=== PATIENT | female | born 1970 | race Caucasian/White ===

== ENCOUNTER 2017-02-25 05:21 | Inpatient (IN) | payer BC ==
[2017-02-24 09:05] VITALS: BMI 28.2
[~2017-02-25] VITALS: Ht 157.5 cm; Wt 68.3 kg
[2017-02-25] VITALS (20 sets, daily range): BP systolic 108–124; BP diastolic 52–71; PULSE 69–76; RESP 10–20; Ht 157.5 cm; Wt 68.3 kg
--- NOTE | 2017-02-25 04:57 | HPN ---
Date/Time of Note Date/Time of Note DATE: 02/25/17 TIME: 04:57 Interval H&P Admission Note Pt. seen H&P reviewed: No system changes KAY JACOME MD Feb 25, 2017 04:57
[~2017-02-25 05:21] MED LIST: TRANEXAMIC ACID 1,000 MG in SOD CHLORIDE 0.9% 100 ML IVPB ONE
[2017-02-25] MEDS ORDERED: TRANEXAMIC ACID IV SCH ×2 (06:00)
[2017-02-25] MEDS ORDERED: DEXTROSE 5% IV SCH ×2 (06:00)
[2017-02-25] MEDS ORDERED: TRANEXAMIC ACID 1,000 MG in DEXTROSE 5% 100 ML IVPB SCH (06:00)
[2017-02-25] MEDS ORDERED: ONDANSETRON 4 MG INJ IV ONE (06:21)
[2017-02-25] MEDS ORDERED: GABAPENTIN 300 MG CAP PO SCH ×2 (06:30→21:00)
[2017-02-25] MEDS ORDERED: CEFAZOLIN 2 GM/50 ML (PMX) 50 ML IVPB SCH (06:30)
[2017-02-25] MEDS ORDERED: DEXAMETHASONE 1 MG TAB PO SCH (06:30)
[2017-02-25] MEDS ORDERED: BUPIVACAINE 0.5% (SDV) 30 ML, morphine SULFATE (PF) 8 MG, EPINEPHrine 0.3 MG, KETOROLAC... IRR SCH ×7 (06:30)
[2017-02-25] MEDS: traMADol 50 MG TAB PO SCH ×3 (06:36→10:51)
[2017-02-25] MEDS ORDERED: FENTAnyl 50 MCG/ML VIAL ONE (06:40)
[2017-02-25] MEDS ORDERED: GLYCOPYRROLATE 0.4 MG INJ ONE (06:40)
[2017-02-25] MEDS ORDERED: ROCURONIUM 50 MG INJ ONE (06:40)
[2017-02-25] MEDS ORDERED: LIDOCAINE 2% (SDV) 5 ML INJ ONE (06:40)
[2017-02-25] MEDS ORDERED: PROPOFOL 20 ML ONE (06:40)
[2017-02-25] MEDS ORDERED: NEOSTIGMINE 3 MG/3 ML SYRINGE ONE (06:40)
[2017-02-25] MEDS ORDERED: ONDANSETRON 4 MG INJ ONE (06:41)
[2017-02-25] MEDS ORDERED: MIDAZOLAM 1 MG/ML 2 ML INJ ONE (06:41)
[2017-02-25] MEDS ORDERED: DEXAMETHASONE 4 MG/ML 1 ML INJ ONE (06:41)
[2017-02-25] MEDS ORDERED: THROMBIN 5000 UNIT VIAL ONE (06:45)
[2017-02-25] MEDS ORDERED: CA CHLORIDE 10% 10 ML SYRINGE ONE (06:45)
[2017-02-25] MEDS ORDERED: POLYMYXIN/BACITRACIN 1L IRRIG ONE (06:45)
[2017-02-25] MEDS ORDERED: LABETALOL HCL 20MG INJ IV PRN (07:00)
[2017-02-25] MEDS ORDERED: ATROPINE 1 MG/10 ML SYRINGE IV PRN (07:00)
[2017-02-25] MEDS ORDERED: LABETALOL HCL 20MG INJ ONE (07:00)
[2017-02-25] MEDS ORDERED: DIPHENHYDRAMINE 50 MG INJ IV PRN ×2 (07:00→10:30)
[2017-02-25] MEDS ORDERED: MIDAZOLAM 1 MG/ML 2 ML INJ IV PRN (07:00)
[2017-02-25] MEDS ORDERED: hydrALAzine 20 MG INJ IV PRN (07:00)
[2017-02-25] MEDS ORDERED: ONDANSETRON 4 MG INJ IV PRN ×2 (07:00→10:30)
[2017-02-25] MEDS ORDERED: EPHEDrine SULFATE 50 MG/5 ML SYG IV PRN (07:00)
[2017-02-25] MEDS ORDERED: TRIAMCINOLONE ACET 40 MG/ML INJ ONE (08:01)
[2017-02-25] MEDS ORDERED: LIDOCAINE 1% (MPF) 10 ML INJ ONE (08:01)
[2017-02-25] MEDS: LACTATED RINGER'S 1,000 ML IV SCH ×2 (10:01→12:05)
--- NOTE | 2017-02-25 10:08 | OPR ---
Date/Time of Note Date/Time of Note DATE: 02/25/17 TIME: 10:03 Operative Report Procedure Date: Feb 25, 2017 Preoperative Diagnosis Hip arthritis following hip arthroscopy Postoperative Diagnosis 1. Right Hip arthritis following hip arthroscopy 2. Left hip bursitis Operation/Procedure Performed 1. Right Hip total arthroplasty following hip arthroscopy 2. Left hip bursa injection Surgeon see signature line Curtain Framer Poncho Sanders PA-C Anesthesia Type: general Estimated Blood Loss: 150 - 200 ml's Transfusion none Specimen NONE Grafts/Implants none Complications none Pt Condition Post Procedure: stable Disposition: PACU Procedure Description REHAB NURSING TECH SURGEON: Poncho Sanders PA-C was asked to be present at my request as a result of the complexity associated with this procedure including positioning of the extremity, positioning of the instrumentation and protection of the neurovascular structures. In my opinion, the assistance offered by a salesperson surgical appliances is insufficient and Mr. Sanders should be compensated for his time. PROCEDURE IN DETAIL: Following the administration of general endotracheal anesthesia supplemented with a spinal anesthetic, the patient was placed in the supine position. The bilateral lower extremities were then prepped and draped in the usual sterile fashion. A inspector air carrier radiograph was obtained for preliminary limb length and femoral size as well as acetabular size. A lateral incision was then made exposing the tensor fascia the fascia was incised the tensor was retracted laterally and the vessels were cauterized. The anterior capsule was then identified and incised. Severe scarring was noted from the prior arthroscopy and there were several abnormal bands. A capsulectomy was then performed and the femoral head was then evaluated. Severe arthritic changes were noted. A femoral head cut was then made in the appropriate degree of version and inclination. The acetabulum was then exposed and a capsulectomy and labrectomy were completed. The central portion was then entered and serially reamed up to the 47 mm size. A Depuy [place] cup which is 48 mm in size with a standard liner was then fit into position with solid fixation. A 30 mm screw was used for additional fixation. Attention was then directed to the femur, the femur was exposed and prepared. The canal was entered and serially reamed up to the 9 mm size. A 9 mm Depuy KLA [place] stem was then inserted with solid fixation. A 32 femoral head, which was ceramic was then inserted. The leg was taken through full range of motion with no evident instability. In addition, radiographs revealed excellent position with reproduction of the limb lengths within a millimeter. The wound was irrigated thoroughly. The wound was then closed in layers and a Prenio for the final cover. This was watertight. Estimated blood loss was procedure was 250 cc. Postoperative radiographs will be obtained in the recovery room. KAY JACOME MD Feb 25, 2017 10:08
[2017-02-25] MEDS ORDERED: OXYCODONE/ACETAMINOPHEN (5/325) TAB PO PRN ×2 (10:30)
[2017-02-25] MEDS ORDERED: MAGNESIUM HYDROXIDE 30ML CUP PO PRN (10:30)
[2017-02-25] MEDS ORDERED: ACETAMINOPHEN 500 MG TAB PO PRN (10:30)
[2017-02-25] MEDS ORDERED: KETOROLAC 15 MG INJ IV PRN (10:30)
[2017-02-25] MEDS ORDERED: morphine 2 MG INJ IV PRN (10:30)
[2017-02-25] MEDS ORDERED: TRANEXAMIC ACID 1,000 MG in SOD CHLORIDE 0.9% 100 ML IV ONE (10:30)
[2017-02-25] MEDS ORDERED: ZOLPIDEM 5 MG TAB PO PRN (10:30)
[2017-02-25] MEDS ORDERED: morphine 4 MG/ML VIAL IV PRN (10:30)
--- NOTE | 2017-02-25 10:47 | PDOCDIS ---
Discharge Instructions DIAGNOSIS Discharge Diagnosis Right hip arthritis CONDITION Patient Condition: Good HOME CARE INSTRUCTIONS: Diet Instructions: Regular ACTIVITY: Activity Restrictions: Slowly Increase Activity Bathing Restrictions: Shower FOLLOW UP/APPOINTMENTS Follow-up Plan 2 weeks in the office SCHOOL/WORK RELEASE May return to School/Work with: With Restrictions School/Work Release Comment: No hip extension for 6 weeks KAY JACOME MD Feb 25, 2017 10:47
[2017-02-25] MEDS: CEFAZOLIN 1 GM/50 ML (PMX) 50 ML IVPB SCH ×2 (10:50→18:02)
[2017-02-25 11:24] LABS: BASOPHILS % 0.2 % (0.0-2.0); EOSINOPHILS % 0.1 % (0.0-7.0); HEMOGLOBIN 12.4 g/dl (12.0-16.0); LYMPHOCYTES # 0.8 10^3/ul (0.8-2.9); LYMPHOCYTES % 5.9 % (15.0-51.0); MEAN CORPUSCULAR HEMOGLOBIN 30.9 pg (29.0-33.0); MEAN CORPUSCULAR HGB CONC 33.5 g/dl (32.0-37.0); MEAN CORPUSCULAR VOLUME 92.3 fl (82.0-101.0); MEAN PLATELET VOLUME 9.5 fl (7.4-10.4); MONOCYTE # 0.2 10^3/ul (0.3-0.9); MONOCYTES % 1.6 % (0.0-11.0); NEUTROPHIL # 12.3 10^3/ul (1.6-7.5); NEUTROPHILS % 91.8 % (39.0-77.0); PLATELET COUNT 346 10^3/UL (140-415); RED BLOOD COUNT 4.01 10^6/ul (4.20-5.40); RED CELL DISTRIBUTION WIDTH 12.6 % (11.5-14.5); WHITE BLOOD COUNT 13.4 10^3/ul (4.8-10.8)
--- NOTE | 2017-02-25 11:24 | RADRPT ---
PROCEDURE: Intraoperative fluoroscopy CLINICAL INDICATION: pain TECHNIQUE: Fluoroscopic spot images from an intraoperative procedure submitted. Fluoro time: 0.3 min Number of images/fluoroscopic sequences: 6 COMPARISON: none FINDINGS: Fluoroscopic images of the pelvis were obtained during a right hip replacement. There is evidence of prior left hip replacement. RPTAT: AA IMPRESSION: Intraoperative films from right hip replacement. Please refer to the operative note for more information. .Jim Luke MD, MD Date Time Electronically viewed and signed by .Jim Luke MD, on 02/25/2017 11:24 .S/
[2017-02-25 11:39] LABS: HOLD TRANSMISSIONS 1
--- NOTE | 2017-02-25 11:59 | RADRPT ---
PROCEDURE: XR pelvis and right hip. CLINICAL INDICATION: S/p Total hip replacement TECHNIQUE: AP pelvis, AP and frog lateral views of the hip were performed. COMPARISON: 02/13/2016. FINDINGS: The patient is status post right hip replacement. There is appropriate position of the prosthesis. There are postsurgical changes in the soft tissues. Remote left hip prosthesis with anatomic alignme nt is demonstrated. No acute fracture. IMPRESSION: 1. Postsurgical changes of the right hip status post hip replacement. 2. Stable left hip replacement . RPTAT: HRSR Physician Lam Date Time Electronically viewed and signed by Physician Lam on 02/25/2017 11:58 RR/
[2017-02-25] MEDS: DEXAMETHASONE 2 MG TAB PO SCH ×3 (12:04→23:02)
[2017-02-25] MEDS: SENNA/DOCUSATE NA (8.6MG/50MG) TAB PO SCH (20:33)
[2017-02-26] VITALS: BP 115/69; PULSE 83
[2017-02-26] MEDS: CEFAZOLIN 1 GM/50 ML (PMX) 50 ML IVPB SCH (01:51)
[2017-02-26] MEDS: DEXAMETHASONE 2 MG TAB PO SCH (05:18)
[2017-02-26 05:32] LABS: BASOPHILS % 0.1 % (0.0-2.0); HEMATOCRIT 30.2 % (37.0-47.0); HEMOGLOBIN 10.2 g/dl (12.0-16.0); LYMPHOCYTES % 7.7 % (15.0-51.0); MEAN CORPUSCULAR HEMOGLOBIN 31.2 pg (29.0-33.0); MEAN CORPUSCULAR HGB CONC 33.8 g/dl (32.0-37.0); MEAN CORPUSCULAR VOLUME 92.4 fl (82.0-101.0); MEAN PLATELET VOLUME 9.7 fl (7.4-10.4); MONOCYTE # 1.2 10^3/ul (0.3-0.9); MONOCYTES % 9.8 % (0.0-11.0); NEUTROPHIL # 10.2 10^3/ul (1.6-7.5); NEUTROPHILS % 82.1 % (39.0-77.0); PLATELET COUNT 279 10^3/UL (140-415); RED BLOOD COUNT 3.27 10^6/ul (4.20-5.40); RED CELL DISTRIBUTION WIDTH 12.6 % (11.5-14.5); WHITE BLOOD COUNT 12.5 10^3/ul (4.8-10.8)
[2017-02-26] MEDS: LACTATED RINGER'S 1,000 ML IV SCH (06:01)
--- NOTE | 2017-02-26 06:38 | PN ---
Date/Time of Note Date/Time of Note DATE: 02/26/17 TIME: 06:37 24 hour Interval Summary Patient is awake and alert with no complaints. Physical Exam Physical examination: She is neurologically intact. There are no signs of DVT. Her wound is clean and dry. Vital Signs Date Time Temp Pulse Resp B/P Pulse Ox O2 Delivery O2 Flow Rate FiO2 02/26/17 00:00 98.0 83 115/69 97 Room Air 02/25/17 19:50 20 Intake and Output 02/25/17 02/25/17 02/26/17 15:00 23:00 07:00 Intake Total 1600 ml 1280 ml 1250 ml Output Total 1800 ml 500 ml 1900 ml Balance -200 ml 780 ml -650 ml VTE Prophylaxis VTE Prophylaxis Intervention: SCD's Lines/Catheters IV Catheter Type: Saline Lock Ly[place] in Place: No Results Result Diagram: 02/26/17 0450 Results 24hrs Laboratory Tests Test 02/25/17 11:02 02/26/17 04:50 White Blood Count 13.4 #H 12.5 H Red Blood Count 4.01 #L 3.27 L Hemoglobin 12.4 # 10.2 L Hematocrit 37.0 # 30.2 L Mean Corpuscular Volume 92.3 92.4 Mean Corpuscular Hemoglobin 30.9 31.2 Mean Corpuscular Hemoglobin Concent 33.5 33.8 Red Cell Distribution Width 12.6 12.6 Platelet Count 346 279 Mean Platelet Volume 9.5 9.7 Neutrophils % 91.8 H 82.1 H Lymphocytes % 5.9 L 7.7 L Monocytes % 1.6 9.8 Eosinophils % 0.1 0.0 Basophils % 0.2 0.1 Nucleated Red Blood Cells % 0.0 0.0 Neutrophils # 12.3 H 10.2 H Lymphocytes # 0.8 1.0 Monocytes # 0.2 L 1.2 H Eosinophils # 0.0 0.0 Basophils # 0.0 0.0 Nucleated Red Blood Cells # 0.0 0.0 CBC Results Faxed/Phoned 1 *H Assessment/Plan Assessment/Plan Assessment: Status post total hip replacement Plan: She will begin physical therapy and be discharged this afternoon after clearing by therapy. Medications Medications Home Meds No Active Prescriptions or Reported Meds KAY JACOME MD Feb 26, 2017 06:38
--- NOTE | 2017-02-26 06:39 | DS ---
Date/Time of Note Date/Time of Note DATE: 02/26/17 TIME: 06:38 Discharge Summary Admission/Discharge Info Admit Date/Time Feb 25, 2017 at 05:21 Discharge Date/Time February 26, 2017 following clearance by physical therapy Discharge Diagnosis Right hip arthritis Patient Condition: Good Procedures Right total hip arthroplasty Hx of Present Illness Pain and stiffness for several years. Hospital Course Patient was admitted and underwent an uncomplicated procedure. Postoperative day #1 she is afebrile awake and alert and cleared for ambulation independently. Home Meds No Active Prescriptions or Reported Meds Follow-up Plan 2 weeks in the office Primary Care Provider Care Physician No Primary Pending Labs Laboratory Tests Test 02/25/17 11:02 02/26/17 04:50 White Blood Count 13.410^3/ul (4.8-10.8) 12.510^3/ul (4.8-10.8) Red Blood Count 4.0110^6/ul (4.20-5.40) 3.2710^6/ul (4.20-5.40) Hemoglobin 12.4g/dl (12.0-16.0) 10.2g/dl (12.0-16.0) Hematocrit 37.0% (37.0-47.0) 30.2% (37.0-47.0) Mean Corpuscular Volume 92.3fl (82.0-101.0) 92.4fl (82.0-101.0) Mean Corpuscular Hemoglobin 30.9pg (29.0-33.0) 31.2pg (29.0-33.0) Mean Corpuscular Hemoglobin Concent 33.5g/dl (32.0-37.0) 33.8g/dl (32.0-37.0) Red Cell Distribution Width 12.6% (11.5-14.5) 12.6% (11.5-14.5) Platelet Count 17655^3/UL (140-415) 03306^3/UL (140-415) Mean Platelet Volume 9.5fl (7.4-10.4) 9.7fl (7.4-10.4) Neutrophils % 91.8% (39.0-77.0) 82.1% (39.0-77.0) Lymphocytes % 5.9% (15.0-51.0) 7.7% (15.0-51.0) Monocytes % 1.6% (0.0-11.0) 9.8% (0.0-11.0) Eosinophils % 0.1% (0.0-7.0) 0.0% (0.0-7.0) Basophils % 0.2% (0.0-2.0) 0.1% (0.0-2.0) Nucleated Red Blood Cells % 0.0/100WBC (0.0-0.0) 0.0/100WBC (0.0-0.0) Neutrophils # 12.310^3/ul (1.6-7.5) 10.210^3/ul (1.6-7.5) Lymphocytes # 0.810^3/ul (0.8-2.9) 1.010^3/ul (0.8-2.9) Monocytes # 0.210^3/ul (0.3-0.9) 1.210^3/ul (0.3-0.9) Eosinophils # 0.010^3/ul (0.0-0.5) 0.010^3/ul (0.0-0.5) Basophils # 0.010^3/ul (0.0-0.1) 0.010^3/ul (0.0-0.1) Nucleated Red Blood Cells # 0.010^3/ul (0.0-0.0) 0.010^3/ul (0.0-0.0) CBC Results Faxed/Phoned 1 KAY JACOME MD Feb 26, 2017 06:39
[2017-02-26 08:26] VITALS: BP 123/72; RESP 20
[2017-02-26] MEDS: SENNA/DOCUSATE NA (8.6MG/50MG) TAB PO SCH (08:37)
[2017-02-26] MEDS ORDERED: ASPIRIN 81 MG TAB PO SCH (09:00)
== END 2017-02-26 16:50 | disposition home or self-care (01) | DRG 470 ==
LOC: REC 05:21 → MS1 11:37
PROVIDERS: ADMIT Orthopaedic Surgery; ATTEND Orthopaedic Surgery
PROC: 0SR9049 Replacement of Right Hip Joint with Ceramic on Polyethylene Synthetic Substitute, Cemented, Open Approach (ICD-10-PCS; principal; 2017-02-25 07:30)
DX: M16.11 Unilateral primary osteoarthritis, right hip (principal)
CPT/HCPCS: 72170; 73530; 85025; 86850; 86900; 86901; 86999; 87086; 97116; 97163; 97530; C1713; C1776; J0171; J0690; J0735; J1100; J1885; J2250; J2270; J2274; J2405; J2710; J3010; J3370; J7070; J7120